=== PATIENT | male | born 1960 | race Caucasian/White ===

== ENCOUNTER 2018-05-19 12:50 | Day surgery (SDC) | payer MEDICAID ==
[~2018-05-19] VITALS: Ht 177.8 cm; Wt 97.7 kg
[2018-05-19] MEDS ORDERED: CHLORTHALIDONE (13:05)
[2018-05-19] MEDS ORDERED: LOSA50TA37 PO (13:05)
[2018-05-19] MEDS ORDERED: POTA8TAB8 PO (13:06)
[2018-05-19] MEDS ORDERED: METO-395 PO (13:10)
[2018-05-19 13:15] VITALS: BP 156/104
[2018-05-19] MEDS ORDERED: MIDAZolam 5mg/5ml vial ONE (13:25)
[2018-05-19] MEDS ORDERED: fentaNYL/PF 50MCG/1 ML 2ML syringe ONE (13:25)
[2018-05-19] MEDS ORDERED: LIDOcaine Viscous 15ml cup ONE (13:26)
[2018-05-19 13:45] VITALS: BP 139/87
[2018-05-19 13:55] VITALS: BP 145/86
[2018-05-19 14:05] VITALS: BP 146/88
== END 2018-05-19 14:45 | disposition home or self-care (01) ==
LOC: GI LAB 12:50
PROVIDERS: ATTEND Internal Medicine Gastroenterology
DX: K21.0 Gastro-esophageal reflux disease with esophagitis (principal); I10 Essential (primary) hypertension; Z79.899 Other long term (current) drug therapy; Z98.890 Other specified postprocedural states
CPT/HCPCS: 43235; J2250; J3010; J7030; A4620; G0500